=== PATIENT | female | born 1985 | race Two or more races ===

== ENCOUNTER 2017-11-01 21:04 | Outpatient (CLI) | payer MEDICAID ==
[2017-11-01] MEDS: LACTATED RINGER'S 1,000 ML IV (22:01)
[2017-11-01 22:25] LABS: ADD MAN DIFF? NO
[2017-11-01 22:28] LABS: BASOPHILS % 0.2 % (0.0-2.0); EOSINOPHILS # 0.1 10^3/ul (0.0-0.5); EOSINOPHILS % 0.5 % (0.0-7.0); HEMATOCRIT 34.6 % (37.0-47.0); HEMOGLOBIN 12.2 g/dl (12.0-16.0); LYMPHOCYTES # 1.7 10^3/ul (0.8-2.9); LYMPHOCYTES % 17.4 % (15.0-51.0); MEAN CORPUSCULAR HEMOGLOBIN 31.5 pg (29.0-33.0); MEAN CORPUSCULAR HGB CONC 35.3 g/dl (32.0-37.0); MEAN CORPUSCULAR VOLUME 89.4 fl (82.0-101.0); MEAN PLATELET VOLUME 11.4 fl (7.4-10.4); MONOCYTE # 0.8 10^3/ul (0.3-0.9); MONOCYTES % 8.2 % (0.0-11.0); NEUTROPHIL # 7.1 10^3/ul (1.6-7.5); NEUTROPHILS % 73.2 % (39.0-77.0); PLATELET COUNT 214 10^3/UL (140-415); RED BLOOD COUNT 3.87 10^6/ul (4.20-5.40); RED CELL DISTRIBUTION WIDTH 12.6 % (11.5-14.5)
[2017-11-01 22:28] LABS: WHITE BLOOD COUNT 9.7 10^3/ul (4.8-10.8)
[2017-11-01 22:43] LABS: PARTIAL THROMBOPLASTIN TIME 27.7 Sec (25.0-35.0)
[2017-11-01 22:45] LABS: ALANINE AMINOTRANSFERASE 27 IU/L (13-69); ALBUMIN 3.7 g/dl (3.3-4.9); ALBUMIN/GLOBULIN RATIO 1.12; ALKALINE PHOSPHATASE 81 IU/L (42-121); AMYLASE 127 U/L (11-123); ANION GAP 16 (8-16); ASPARTATE AMINO TRANSFERASE 38 IU/L (15-46); BILIRUBIN,INDIRECT 0.4 mg/dl (0-1.1); BILIRUBIN,TOTAL 0.4 mg/dl (0.2-1.3); BLOOD UREA NITROGEN 8 mg/dl (7-20); CALCIUM 9.1 mg/dl (8.4-10.2); CARBON DIOXIDE 22 mmol/L (21-31); CHLORIDE 105 mmol/L (97-110); CREATININE 0.55 mg/dl (0.44-1.00); GLUCOSE 108 mg/dl (70-220); LIPASE 96 U/L (23-300); POTASSIUM 3.5 mmol/L (3.5-5.1); SODIUM 139 mmol/L (135-144); URIC ACID 3.1 mg/dl (3.1-7.9)
[2017-11-01 22:50] LABS: PROTIME 12.2 Sec (11.9-14.9)
[2017-11-01] MEDS ORDERED: LACTATED RINGER'S 1,000 ML IV (23:00)
[2017-11-01 23:18] LABS: ADD UMIC YES; UR ASCORBIC ACID NEGATIVE (NEGATIVE); UR BACTERIA FEW /HPF (NONE SEEN); UR BILIRUBIN (Dip) 2+ mg/dL (NEGATIVE); UR BLOOD (Dip) NEGATIVE (NEGATIVE); UR CALCIUM OXALATE CRYSTAL MANY /HPF (NONE SEEN); UR CLARITY CLOUDY (CLEAR); UR COLOR AMBER (YELLOW); UR GLUCOSE (Dip) NEGATIVE (NEGATIVE); UR KETONES (Dip) 1+ mg/dL (NEGATIVE); UR LEUKOCYTE ESTERASE (Dip) TRACE Leu/ul (NEGATIVE); UR MUCUS MANY /HPF (NONE SEEN); UR NITRITE (Dip) NEGATIVE (NEGATIVE); UR RBC 11 /HPF (0-5); UR SPECIFIC GRAVITY (Dip) 1.036 (1.003-1.030); UR SQUAMOUS EPITHELIAL CELL FEW /HPF (FEW); UR TOTAL PROTEIN (Dip) 2+ mg/dl (NEGATIVE); UR UROBILINOGEN (Dip) 2+ mg/dL (NEGATIVE); UR WBC 7 /HPF (0-5)
== END 2017-11-02 00:15 | disposition home or self-care (01) ==
LOC: OBT 21:04 → L-D 21:06
DX: O26.893 Other specified pregnancy related conditions, third trimester (principal); O99.613 Diseases of the digestive system complicating pregnancy, third trimester; K80.20 Calculus of gallbladder without cholecystitis without obstruction; Z3A.29 29 weeks gestation of pregnancy
CPT/HCPCS: 36415; 76705; 76815; 80053; 80076; 81001; 82150; 83690; 84560; 85025; 85610; 85730; 96360; 96361

== ENCOUNTER 2017-11-15 10:03 | Outpatient (CLI) | payer MEDICAID ==
[2017-11-15 11:36] LABS: ADD MAN DIFF? NO
[2017-11-15] MEDS: LACTATED RINGER'S 1,000 ML IV (11:39)
[2017-11-15] MEDS: TERBUTALINE 1 MG/ML INJ SC (11:40)
[2017-11-15 11:51] LABS: WHITE BLOOD COUNT 6.5 10^3/ul (4.8-10.8)
[2017-11-15 11:51] LABS: BASOPHILS % 0.3 % (0.0-2.0); EOSINOPHILS % 0.6 % (0.0-7.0); HEMATOCRIT 33.8 % (37.0-47.0); HEMOGLOBIN 11.7 g/dl (12.0-16.0); LYMPHOCYTES # 1.5 10^3/ul (0.8-2.9); LYMPHOCYTES % 23.5 % (15.0-51.0); MEAN CORPUSCULAR HEMOGLOBIN 30.5 pg (29.0-33.0); MEAN CORPUSCULAR HGB CONC 34.6 g/dl (32.0-37.0); MEAN CORPUSCULAR VOLUME 88.3 fl (82.0-101.0); MEAN PLATELET VOLUME 11.1 fl (7.4-10.4); MONOCYTE # 0.5 10^3/ul (0.3-0.9); MONOCYTES % 8.1 % (0.0-11.0); NEUTROPHIL # 4.4 10^3/ul (1.6-7.5); NEUTROPHILS % 67.2 % (39.0-77.0); PLATELET COUNT 202 10^3/UL (140-415); RED BLOOD COUNT 3.83 10^6/ul (4.20-5.40); RED CELL DISTRIBUTION WIDTH 12.4 % (11.5-14.5)
[2017-11-15 13:07] LABS: ADD UMIC YES; UR ASCORBIC ACID NEGATIVE (NEGATIVE); UR BACTERIA FEW /HPF (NONE SEEN); UR BILIRUBIN (Dip) NEGATIVE (NEGATIVE); UR BLOOD (Dip) NEGATIVE (NEGATIVE); UR CLARITY SLIGHTLY CLOUDY (CLEAR); UR COLOR YELLOW (YELLOW); UR GLUCOSE (Dip) NEGATIVE (NEGATIVE); UR KETONES (Dip) 1+ mg/dL (NEGATIVE); UR LEUKOCYTE ESTERASE (Dip) NEGATIVE Leu/ul (NEGATIVE); UR MUCUS MODERATE /HPF (NONE SEEN); UR NITRITE (Dip) NEGATIVE (NEGATIVE); UR RBC 2 /HPF (0-5); UR SPECIFIC GRAVITY (Dip) 1.024 (1.003-1.030); UR SQUAMOUS EPITHELIAL CELL FEW /HPF (FEW); UR TOTAL PROTEIN (Dip) 1+ mg/dl (NEGATIVE); UR UROBILINOGEN (Dip) NEGATIVE (NEGATIVE); UR WBC 2 /HPF (0-5)
== END 2017-11-15 13:40 | disposition home or self-care (01) ==
LOC: OBT 10:03 → L-D 10:11 → OBT 13:40
DX: O62.9 Abnormality of forces of labor, unspecified (principal); Z3A.31 31 weeks gestation of pregnancy
CPT/HCPCS: 36415; 76817; 76818; 81001; 85025; 96360; 96361; 96372

== ENCOUNTER 2018-01-05 19:58 | Inpatient (IN) | payer MEDICAID ==
[2018-01-05] MEDS ORDERED: BUTORPHANOL 2 MG INJ IV (22:00)
[2018-01-05] MEDS ORDERED: MISOPROSTOL 200 MCG TAB PR (22:00)
[2018-01-05] MEDS ORDERED: OXYTOCIN 30 UNITS/LR 500 ML IV ×2 (22:00)
[2018-01-05] MEDS ORDERED: CARBOPROST 250 MCG INJ IM (22:00)
[2018-01-05] MEDS ORDERED: OXYCODONE/ACETAMINOPHEN (5/325) TAB PO (22:00)
[2018-01-05] MEDS ORDERED: LIDOCAINE 1% (MPF) 30 ML INJ INJ (22:00)
[2018-01-05] MEDS: LACTATED RINGER'S 1,000 ML IV (22:15)
[2018-01-05] MEDS: AMPICILLIN 2 GM/NS (PMX) 100 ML IV (22:45)
[2018-01-05 22:56] LABS: ADD MAN DIFF? NO
[2018-01-05 22:58] LABS: BASOPHILS % 0.1 % (0.0-2.0); EOSINOPHILS # 0.1 10^3/ul (0.0-0.5); EOSINOPHILS % 0.9 % (0.0-7.0); HEMATOCRIT 35.4 % (37.0-47.0); HEMOGLOBIN 12.2 g/dl (12.0-16.0); LYMPHOCYTES # 2.2 10^3/ul (0.8-2.9); LYMPHOCYTES % 28.3 % (15.0-51.0); MEAN CORPUSCULAR HGB CONC 34.5 g/dl (32.0-37.0); MEAN CORPUSCULAR VOLUME 84.3 fl (82.0-101.0); MEAN PLATELET VOLUME 11.4 fl (7.4-10.4); MONOCYTE # 0.7 10^3/ul (0.3-0.9); MONOCYTES % 8.3 % (0.0-11.0); NEUTROPHIL # 4.9 10^3/ul (1.6-7.5); NEUTROPHILS % 62.1 % (39.0-77.0); PLATELET COUNT 248 10^3/UL (140-415); RED CELL DISTRIBUTION WIDTH 13.1 % (11.5-14.5)
[2018-01-05 22:58] LABS: WHITE BLOOD COUNT 7.9 10^3/ul (4.8-10.8)
[2018-01-05 23:16] LABS: INR 0.93; PROTIME 12.5 Sec (11.9-14.9)
[2018-01-05 23:17] LABS: PARTIAL THROMBOPLASTIN TIME 27.4 Sec (25.0-35.0)
[2018-01-05 23:48] LABS: HEPATITIS B SURFACE ANTIGEN NEGATIVE (NEGATIVE)
[2018-01-06] MEDS ORDERED: AMPICILLIN 1 GM/NS (PMX) 50 ML IV (02:00)
[2018-01-06] MEDS: LACTATED RINGER'S 1,000 ML IV ×3 (04:50→20:32)
[2018-01-06] MEDS ORDERED: MINERAL OIL LIGHT 10 ML VIAL TOP (08:00)
[2018-01-06] MEDS ORDERED: LACTATED RINGER'S 1,000 ML IV (17:52)
[2018-01-06 22:23] LABS: RAPID PLASMA REAGIN NONREACTIVE (NR)
[2018-01-07] MEDS: OXYTOCIN 30 UNITS/LR 500 ML IV ×2 (03:19→18:10)
[2018-01-07] MEDS: LACTATED RINGER'S 1,000 ML IV ×2 (03:50→11:39)
[2018-01-07] MEDS: METHYLERGONOVINE 0.2 MG INJ IM (17:03)
[2018-01-07] MEDS: IBUPROFEN 600 MG TAB PO ×2 (17:13→23:31)
[2018-01-07] MEDS ORDERED: OXYTOCIN 30 UNITS/LR 500 ML IV (20:00)
[2018-01-07] MEDS ORDERED: MISOPROSTOL 200 MCG TAB PR (20:00)
[2018-01-07] MEDS ORDERED: METHYLERGONOVINE 0.2 MG INJ IM (20:00)
[2018-01-07] MEDS ORDERED: DIBUCAINE 1% 30 GM OINT PR (20:00)
[2018-01-07] MEDS ORDERED: WITCH HAZEL/GLYCERIN PAD PR (20:00)
[2018-01-07] MEDS ORDERED: CARBOPROST 250 MCG INJ IM (20:00)
[2018-01-07] MEDS ORDERED: HYDROCODONE/APAP (5/325) TAB PO ×2 (20:00)
[2018-01-07] MEDS ORDERED: ZOLPIDEM 5 MG TAB PO (20:00)
[2018-01-07] MEDS: LANOLIN 7 GM TUBE TOP (21:02)
[2018-01-07] MEDS: LACTATED RINGER'S 1,000 ML IV* (21:03)
[2018-01-07] MEDS: BENZOCAINE 20% 56 ML SPRAY TOP (21:03)
[2018-01-07] MEDS: MAGNESIUM HYDROXIDE 30ML CUP PO (21:03)
[2018-01-07] MEDS: SENNA/DOCUSATE NA (8.6MG/50MG) TAB PO (21:03)
[2018-01-08] MEDS: IBUPROFEN 600 MG TAB PO ×3 (05:41→18:00)
[2018-01-08] MEDS: LACTATED RINGER'S 1,000 ML IV* ×3 (06:31→22:00)
[2018-01-08] MEDS: SENNA/DOCUSATE NA (8.6MG/50MG) TAB PO ×2 (09:00→21:00)
[2018-01-08] MEDS: MAGNESIUM HYDROXIDE 30ML CUP PO ×2 (09:00→21:00)
[2018-01-08 10:13] LABS: ADD MAN DIFF? NO
[2018-01-08 10:18] LABS: BASOPHILS % 0.3 % (0.0-2.0); EOSINOPHILS # 0.1 10^3/ul (0.0-0.5); HEMATOCRIT 30.1 % (37.0-47.0); HEMOGLOBIN 10.2 g/dl (12.0-16.0); LYMPHOCYTES # 1.6 10^3/ul (0.8-2.9); LYMPHOCYTES % 24.9 % (15.0-51.0); MEAN CORPUSCULAR HEMOGLOBIN 29.2 pg (29.0-33.0); MEAN CORPUSCULAR HGB CONC 33.9 g/dl (32.0-37.0); MEAN CORPUSCULAR VOLUME 86.2 fl (82.0-101.0); MEAN PLATELET VOLUME 11.2 fl (7.4-10.4); MONOCYTE # 0.7 10^3/ul (0.3-0.9); MONOCYTES % 10.5 % (0.0-11.0); NEUTROPHILS % 63.1 % (39.0-77.0); PLATELET COUNT 183 10^3/UL (140-415); RED BLOOD COUNT 3.49 10^6/ul (4.20-5.40); RED CELL DISTRIBUTION WIDTH 13.2 % (11.5-14.5)
[2018-01-08 10:18] LABS: WHITE BLOOD COUNT 6.3 10^3/ul (4.8-10.8)
[2018-01-08] MEDS: BUPIVACAINE 0.5%/EPI (SDV) 30 ML INJ INJ (17:10)
[2018-01-08] MEDS ORDERED: METOCLOPRAMIDE 10 MG INJ IV (17:30)
[2018-01-08] MEDS ORDERED: morphine (1 MG/ML) 10ML SYRINGE IV ×2 (17:30)
[2018-01-08] MEDS ORDERED: DIPHENHYDRAMINE 50 MG INJ IV (17:30)
[2018-01-08] MEDS ORDERED: FENTAnyl 50 MCG/ML VIAL IV ×2 (17:30)
[2018-01-08] MEDS ORDERED: hydrALAzine 20 MG INJ IV (17:30)
[2018-01-08] MEDS ORDERED: HYDROmorphONE (0.2 MG/ML) 10ML SYG IV (17:30)
[2018-01-08] MEDS ORDERED: SUCCINYLCHOLINE CHLORIDE 100 MG/5 ML SYG IV (18:30)
[2018-01-08] MEDS ORDERED: CEFAZOLIN 1 GM INJ (18:30)
[2018-01-08] MEDS ORDERED: ROCURONIUM 50 MG INJ (18:30)
[2018-01-08] MEDS ORDERED: FENTAnyl 50 MCG/ML VIAL (18:30)
[2018-01-08] MEDS ORDERED: ONDANSETRON 4 MG INJ (18:30)
[2018-01-08] MEDS ORDERED: PROPOFOL 200 MG INJ (18:30)
[2018-01-08] MEDS ORDERED: GLYCOPYRROLATE 0.4 MG INJ (18:30)
[2018-01-08] MEDS ORDERED: NEOSTIGMINE 3 MG/3 ML SYRINGE (18:30)
[2018-01-08] MEDS ORDERED: MIDAZOLAM 1 MG/ML 2 ML INJ (18:30)
[2018-01-08] MEDS ORDERED: LACTATED RINGER'S 1,000 ML IV (20:48)
[2018-01-08] MEDS ORDERED: KETOROLAC 60 MG INJ IM (20:48)
[2018-01-08] MEDS: HYDROmorphONE (0.2 MG/ML) 10ML SYG IV ×3 (21:00→21:13)
[2018-01-08] MEDS: MEPERIDINE 25 MG INJ IV (21:03)
[2018-01-08] MEDS: ONDANSETRON 4 MG INJ IV (21:03)
[2018-01-08] MEDS: BUTORPHANOL 2 MG INJ IM (21:13)
[2018-01-08] MEDS: KETOROLAC 30 MG INJ IM (21:18)
[2018-01-09] MEDS ORDERED: IBUPROFEN 600 MG TAB PO
[2018-01-09] MEDS: CEPHALEXIN 500 MG CAP PO ×3 (00:13→11:58)
[2018-01-09] MEDS: IBUPROFEN 600 MG TAB PO ×3 (00:13→11:58)
[2018-01-09] MEDS: LACTATED RINGER'S 1,000 ML IV* (05:45)
[2018-01-09] MEDS: SENNA/DOCUSATE NA (8.6MG/50MG) TAB PO (08:30)
[2018-01-09] MEDS: VARICELLA VACCINE LIVE/PF 1,350 UNIT/0.5 ML ML SC* (08:31)
[2018-01-09] MEDS: MAGNESIUM HYDROXIDE 30ML CUP PO (08:31)
[2018-01-09] MEDS: MEASLES,MUMPS,RUBELLA VACCINE INJ SC* (08:31)
[2018-01-09] MEDS: DIPHTH/TET/ACEL PERTUSS (ADULT) 0.5 ML VIAL IM* (09:00)
== END 2018-01-09 13:10 | disposition home or self-care (01) | DRG 767 ==
LOC: OBT 19:58 → L-D 19:58 → PP1 01-07 20:04 → OBT 21:44 → L-D 21:20
PROVIDERS: Obstetrics & Gynecology
PROC: 0UB70ZZ Excision of Bilateral Fallopian Tubes, Open Approach (ICD-10-PCS; 2018-01-08 18:30)
PROC: 10E0XZZ Delivery of Products of Conception, External Approach (ICD-10-PCS; principal; 2018-01-08 19:21)
PROC: 4A1HXCZ Monitoring of Products of Conception, Cardiac Rate, External Approach (ICD-10-PCS; 2018-01-08 19:21)
DX: O69.81X0 Labor and delivery complicated by cord around neck, without compression, not applicable or unspecified (principal); Z3A.39 39 weeks gestation of pregnancy; Z37.0 Single live birth; Z30.2 Encounter for sterilization
CPT/HCPCS: 62319; 76815; 85025; 85610; 85730; 86592; 86900; 86901; 87340; 88302